=== PATIENT | female | born 1980 | race Caucasian/White ===

== ENCOUNTER 2019-12-01 04:07 | Emergency (ER) | payer MEDICARE, SELFPAY ==
[2019-12-01] VITALS (15 sets, daily range): BP systolic 89–141; BP diastolic 35–65; PULSE 84–104; RESP 16; TEMP 37; O2SAT 94–99; BMI 52.1
--- NOTE | 2019-12-01 04:37 | CTR_ITS ---
PROCEDURE INFORMATION: Exam: CT Abdomen And Pelvis With Contrast Exam date and time: 12/01/2019 4:41 AM Age: 39 years old Clinical indication: Other: Diarrhea; Prior surgery; Surgery date: 6+ months; Surgery type: Hyst; Additional info: Pain, diarrhea TECHNIQUE: Imaging protocol: Computed tomography of the abdomen and pelvis with intravenous contrast. Radiation optimization: All CT scans at this facility use at least one of these dose optimization techniques: automated exposure control; mA and/or kV adjustment per patient size (includes targeted exams where dose is matched to clinical indication); or iterative reconstruction. Contrast material: OMNI 300; Contrast volume: 95 ml; Contrast route: IV; COMPARISON: No relevant prior studies available. RADIATION DOSE METRICS: Total DLP: 2052.23 mGy-cm FINDINGS: Lungs: Mild atelectasis at bilateral lung bases. Liver: Diffuse fatty infiltration of the liver. Gallbladder and bile ducts: The gallbladder is unremarkable. Pancreas: The pancreas is unremarkable. Spleen: The spleen is unremarkable. Adrenals: There is a 2.6 cm x 1.6 cm nodule in the right adrenal gland on series 2, image 36 with density 36 Hounsfield units. The left adrenal gland is unremarkable. Kidneys and ureters: The kidneys are unremarkable. Stomach and bowel: A normal-appearing appendix is seen in the right lower quadrant. Appendix: No evidence of bowel obstruction. No evidence of diverticulitis. Intraperitoneal space: No free intraperitoneal air or fluid identified. Vasculature: The abdominal aorta is nonaneurysmal. Lymph nodes: Unremarkable. Bladder: The bladder is unremarkable. Reproductive: The uterus is not seen and is presumed surgically absent. Bones/joints: Minimal degenerative changes of the lower thoracic spine. Soft tissues: Unremarkable. CT/CT abdomen pelvis w con* [id number] IMPRESSION: 1. No acute intra-abdominal/intrapelvic process identified. 2. Indeterminate right adrenal nodule. Consider adrenal washout protocol CT on a nonemergent basis for further evaluation (Jeremie Swann, ACR White Paper, 2017) Radiation Dose CTDIVOL = (mGy): DLP = 2052.23 (mGy-cm)
[2019-12-01] MEDS: iohexol 300 mg/mL 100 mL Btl IV (04:45)
[2019-12-01] MEDS: sodium chloride 0.9% 1,000 ML 999 ML IV (05:24)
[2019-12-01 05:29] LABS: Basophils # 0.1 10^3/uL (0.0-0.1); Basophils % 0.3 %; Eosinophils # 0.2 10^3/uL (0.0-0.8); Eosinophils % 1.2 %; Hemoglobin 14.6 g/dL (11.5-15.3); Lymphocytes # 5.7 10^3/uL (0.8-4.8); Lymphocytes % 30.2 %; Mean Corpuscular HGB Conc 31.7 g/dL (30.0-36.0); Mean Corpuscular Hemoglobin 30.2 pg (28.0-34.0); Mean Corpuscular Volume 95.2 fL (81-99); Mean Platelet Volume 10.1 fL (7.4-10.4); Monocytes # 1.3 10^3/uL (0.2-0.9); Monocytes % 6.9 %; Neutrophils # 11.3 10^3/uL (1.8-7.7); Neutrophils % 60.5 %; Nucleated Red Blood Cells % 0 %; Platelet Count 250 10^3/cmm (130-400); Red Blood Count 4.83 10^6/uL (4.1-5.3); Red Cell Distribution Width 13.7 % (12.1-15.1); White Blood Count 18.7 10^3/uL (4.0-10.0)
[2019-12-01 05:55] LABS: Alanine Aminotransferase 47 U/L (0-33); Albumin Level 3.9 g/dL (3.5-5.2); Alkaline Phosphatase 38 IU/L (35-105); Anion Gap 15.8 (5-19); Aspartate Amino Transferase 25 U/L (0-32); Blood Urea Nitrogen 11 mg/dL (6-20); Calcium 9.1 mg/dL (8.5-10.5); Carbon Dioxide 22 mmol/L (22-29); Chloride 100 mmol/L (98-107); Globulin 2.6 g/dL (1.3-4.6); Glomerular Filtration Rate 112.5 mL/min (90-130); Glucose 103 mg/dL (65-115); Lipase 29 U/L (13-60); Osmolality Calculated 274 mOsm/kg (285-295); Potassium 3.8 mmol/L (3.5-5.1); Sodium 134 mmol/L (136-145); Total Bilirubin 0.3 mg/dL (0.15-1.2); Total Protein 6.5 g/dL (6.6-8.7)
[2019-12-01 06:12] LABS: C Reactive Protein 4.6 mg/L (0.0-4.9)
--- NOTE | 2019-12-01 06:17 | W.ED.NAVMDI ---
HPI - Nausea/Vomiting/Diarrhea General: Chief complaint: Nausea/Vomiting/Diarrhea Stated complaint: DIARRHEA; JELLY LIKE TEXTURE Time Seen by Provider: 12/01/19 04:25 History of Present Illness: MD elicited complaint: diarrhea and abdominal pain Pertinent past history: abdominal surgery Onset (ago): day(s) (1) Description of diarrhea: mucus and watery Associated nausea: Yes Associated abdominal pain: Yes Location of pain: Diffuse Radiation: diffuse Pain consistency: intermittent Quality: cramping and aching Exacerbating factors: movement Relieving factors: none Associated symtoms: Reports nausea; Denies anxiety, change in vision, chest pain, dizziness, dysuria, headache(s) or palpitations Review of Systems Const: Denies: fever(s) or chills Eyes: Denies: change in vision or blurry vision ENMT: Denies: swelling of lips/tongue, post nasal drip or sinus pain Card: Denies: chest pain, palpitations, irregular heart rhythm or edema Resp: Denies: dyspnea, productive cough, non-productive cough or wheezing GI: Reports: nausea : Denies: dysuria or hematuria Musc: Denies: neck pain, back pain, joint redness or joint warmth Skin/Breast: Denies: rash, pruritus or erythema Neuro: Denies: headache(s), dizziness or vertigo Psych: Denies: anxiety PFSH ED PFSH: Social History Smoking and tobacco status: current every day smoker Physical Exam Const: GENERAL APPEARANCE: well developed ORIENTATION/CONSCIOUSNESS: Yes oriented to person, Yes oriented to place and Yes oriented to time HENMT: COMMON NORMALS: normocephalic, external ears normal and Normal external nose present HEAD & SCALP: normocephalic FACE & SINUS: normal facial exam NOSE: Normal external nose present and No nasal discharge present EXTERNAL EAR: Yes external ears normal MOUTH: tongue normal THROAT: posterior oropharynx normal; no peritonsillar mass Eye: COMMON NORMALS: Equal, round and reactive pupils present, EOMs intact bilaterally and conjunctivae normal EYELID: eyelids normal CONJUNCTIVA: Yes conjunctivae normal PUPIL: Yes Equal, round and reactive pupils present Neck/C-Spine: GENERAL: No tracheal deviation Chest: COMMONS NORMALS: normal inspection of the chest CHEST: No tenderness Resp: COMMON NORMALS: clear to auscultation bilaterally EFFORT & INSPECTION: No tachypneic, No respiratory distress, No retractions, No uses accessory muscles and No tracheal deviation AUSCULTATION: clear to auscultation bilaterally, no rhonchi, no wheezes and lung sounds not diminished Cardio: COMMON NORMALS: regular rate and regular rhythm RATE: regular rate RHYTHM: regular rhythm HEART SOUNDS: no murmurs PERIPHERAL PULSES: radial pulses present GI: INSPECTION: No abdominal distension AUSCULTATION: No Hyperactive bowel sounds present and No Hypoactive bowel sounds present PALPATION: Yes Tenderness to palpation present (GI) (diffuse), No Guarding due to palpation present (GI) and No Rigid due to palpation PERCUSSION: no dullness to percussion and no tympanic to percussion : COMMON NORMALS: Yes no CVA tenderness BLADDER/KIDNEY EXAM: Yes no CVA tenderness Back/Pelvis: COMMON NORMALS: no CVA tenderness Neuro: SENSORIUM/ORIENTATION: Yes oriented to person, Yes oriented to place and Yes oriented to time Psych: COMMON NORMALS: mental status grossly normal Skin: COMMON NORMALS: no rashes or lesions noted GENERAL SKIN EXAM: no rashes or lesions noted Course Vital Signs: Vital signs: Vital Signs Temperature 98.6 F 12/01/19 04:20 Pulse Rate 84 12/01/19 06:30 Respiratory Rate 16 12/01/19 04:20 Blood Pressure 117/60 12/01/19 06:30 Pulse Oximetry 96 12/01/19 06:30 MDM - Nausea/Vomiting/Diarrhea MDM Narrative: Medical decision making narrative: 39-year-old female with a complaint of diarrhea. She has significant number of loose stools over the past 24 hours. Her hemoglobin is 14.6. Her white blood cell count is 19, but with a normal shift. Her electrolytes are essentially normal. She is received a liter of fluid. Her CT scan is negative. She will be treated for colitis Lab Data: Labs: Lab Results 12/01/19 12/01/19 Range/Units 04:56 05:23 WBC 18.7 H (4.0-10.0) 10^3/ uL RBC 4.83 (4.1-5.3) 10^6/u L Hgb 14.6 (11.5-15.3) g/dL Hct 46.0 (37.0-47.0) % MCV 95.2 (81-99) fL MCH 30.2 (28.0-34.0) pg MCHC 31.7 (30.0-36.0) g/dL RDW 13.7 (12.1-15.1) % Plt Count 250 (130-400) 10^3/c mm MPV 10.1 (7.4-10.4) fL Neut % (Auto) 60.5 % Lymph % (Auto) 30.2 % [place] % (Auto) 6.9 % Eos % (Auto) 1.2 % Baso % (Auto) 0.3 % Neut # (Auto) 11.3 H (1.8-7.7) 10^3/u L Lymph # (Auto) 5.7 H (0.8-4.8) 10^3/u L [place] # (Auto) 1.3 H (0.2-0.9) 10^3/u L Eos # (Auto) 0.2 (0.0-0.8) 10^3/u L Baso # (Auto) 0.1 (0.0-0.1) 10^3/u L Nucleated RBC % (a uto) 0 % Nucleated RBCs # 0.0 /100WBC Sodium 134 L (136-145) mmol/L Potassium 3.8 (3.5-5.1) mmol/L Chloride 100 (98-107) mmol/L Carbon Dioxide 22 (22-29) mmol/L Anion Gap 15.8 (5-19) BUN 11 (6-20) mg/dL Creatinine 0.6 (0.5-0.9) mg/dL GFR Calculation 112.5 (90-130) mL/min Glucose 103 (65-115) mg/dL Calculated Osmolal ity 274 L (285-295) mOsm/k g Calcium 9.1 (8.5-10.5) mg/dL Total Bilirubin 0.3 (0.15-1.2) mg/dL AST 25 (0-32) U/L ALT 47 H (0-33) U/L Alkaline Phosphata se 38 (35-105) IU/L C-Reactive Protein 4.6 (0.0-4.9) mg/L Total Protein 6.5 L (6.6-8.7) g/dL Albumin 3.9 (3.5-5.2) g/dL Globulin 2.6 (1.3-4.6) g/dL Lipase 29 (13-60) U/L Discharge Plan Discharge Patient Disposition: Home, Self-Care Clinical Impression: Colitis Diarrhea Qualifiers: Diarrhea type: presumed infectious Qualified Code(s): R19.7 - Diarrhea, unspecified Condition: Stable Prescriptions: New Flagyl 500 mg tablet 500 mg PO Q8H 7 Days Qty: 21 RF: 0 Discharge Orders: Discharge Order (Routine); Ordered 12/01/19 Ordered By: Bro Gant Discharge Diet: Usual diet Discharge Activity: Increase activity as tolerated Patient Instructions: Acute Diarrhea (ED), Infectious Colitis (ED) Activity Restrictions/Additional Instructions: Return for fever greater than 100 despite 2-3 doses of antibiotics, worsening diarrhea despite treatment, and liquids or medications, worsening pain, other concerning symptoms Discharge Date/Time: 12/01/19 06:47 Coding Level of Care Code ED Accounts Receivable Collector for Jonathon Fwd Exam Comprehensive
[2019-12-01] MEDS: metroNIDAZOLE 500 MG Tablet PO (06:38)
[2019-12-01] MEDS: dexamethasone 4 mg/mL INJ 8 MG IVP (06:39)
== END 2019-12-01 06:47 | disposition home or self-care (01) ==
PROVIDERS: Emergency Provider Emergency Medicine
DX: K52.9 Noninfective gastroenteritis and colitis, unspecified (principal); F17.210 Nicotine dependence, cigarettes, uncomplicated; R19.7 Diarrhea, unspecified
CPT/HCPCS: 12345; 74177; 80053; 82274; 83630; 83690; 85025; 86140; 87493; 87506; 96361; 96374; 99283; J1100; J7030; Q9967

== ENCOUNTER 2021-05-06 18:30 | Emergency (ER) | payer MEDICARE, MEDICAID, SELFPAY ==
[2021-05-06 19:14] VITALS: BP 145/89; PULSE 95; RESP 18; TEMP 36.7; O2SAT 97; BMI 57.8
[2021-05-06 22:30] VITALS: BP 149/90; PULSE 91; O2SAT 97
--- NOTE | 2021-05-06 23:04 | W.ED.SKABFB ---
HPI - Skin/Abscess/Foreign Bdy General: Chief complaint: Skin/Abscess/Foreign Body Stated complaint: PAINFUL GROWTH ON VAGINA Time Seen by Provider: 05/06/21 22:28 History of Present Illness: HPI narrative: Patient is a 40-year-old female comes to the ED with painful swelling of vagina. Patient says symptoms started approximately 2 days ago. Swelling has only increased and gotten more painful. She says its located on right inside part of her vagina. Any pressure or touch causes severe pain. She rates the pain currently an 8 out of 10. Denies any fever, chills, nausea/vomiting, vaginal bleeding or discharge. Associated symptoms: Deny chills, fever(s), nausea or vomiting Review of Systems Const: Denies: fever(s), chills or fatigue Eyes: Denies: change in vision or eye discomfort ENMT: Denies: throat pain, odynophagia, nasal discharge or nasal congestion Card: Denies: chest pain, palpitations, edema, swelling of feet/ankles, dyspnea on exertion or orthopnea Resp: Denies: dyspnea, productive cough or non-productive cough GI: Denies: abdominal pain, nausea, vomiting, diarrhea, constipation or hematochezia : Reports: genital lesions (Right side painful, swollen mass.); Denies: flank pain, dysuria or hematuria Musc: Denies: neck pain, back pain or extremity swelling Skin/Breast: Denies: rash or new lesions Neuro: Denies: headache(s), numbness in extremities or weakness in extremities PFS ED PFSH: Social History Smoking and tobacco status: current every day smoker Physical Exam Const: COMMON NORMALS: no acute distress, patient oriented x3 and alert GENERAL APPEARANCE: cooperative NUTRITIONAL APPEARANCE: obese HENMT: COMMON NORMALS: normocephalic HEAD & SCALP: normocephalic MOUTH: Normal oral and palatal mucosa present THROAT: posterior oropharynx normal and uvula midline Neck/C-Spine: COMMON NORMALS: supple GENERAL: Yes normal visual inspection Resp: COMMON NORMALS: normal respiratory effort, No retractions, No use of accessory muscles and clear to auscultation bilaterally AUSCULTATION: clear to auscultation bilaterally Cardio: COMMON NORMALS: regular rate, regular rhythm, S1 normal heart sound present, S2 normal heart sound present, No gallops present (Cardio), No clicks present (Cardio), No murmurs present (Cardio) and Peripheral pulses 2+ throughout RATE: regular rate RHYTHM: regular rhythm HEART SOUNDS: S1 normal heart sound present and S2 normal heart sound present PERIPHERAL PULSES: Peripheral pulses 2+ throughout GI: COMMON NORMALS: Normal to inspection, nondistended, normoactive bowel sounds present, Soft to palpation, non-tender and no masses PALPATION: Yes Soft to palpation : COMMON NORMALS: Yes no CVA tenderness BLADDER/KIDNEY EXAM: Yes no CVA tenderness EXTERNAL FEMALE EXAM: Yes Bartholin cyst (1cm in size) Bartholin's cyst laterality: right and Yes externally tender (right side of vagina) Back/Pelvis: COMMON NORMALS: no CVA tenderness Neuro: COMMON NORMALS: patient oriented x3 and moves all extremities SENSORIUM/ORIENTATION: Yes alert Skin: GENERAL SKIN EXAM: dry skin Procedures Abscess I/D Site: bartholin's gland (right side) Side (if applicable): right (Iodine swab applied before injection of lidocaine.) Sedation/analgesia: other (dilaudid 1 mg) Local Anesthetic: lidocaine 1% Amount of anesthesia used (mL): 10 Technique: incised with #11 blade Amount of fluid expressed (mL): 6 (Purulent and bloody discharge.) Irrigation: Yes Packing used?: none Course Vital Signs: Vital signs: Vital Signs Temperature 98.1 F 05/06/21 19:14 Pulse Rate 78 05/07/21 01:37 Respiratory Rate 18 05/07/21 01:37 Blood Pressure 142/87 05/07/21 01:37 Pulse Oximetry 98 05/07/21 01:37 MDM - Skin/Abscess/Foreign Bdy MDM Narrative: Medical decision making narrative: Patient is a 40-year-old female comes to the ED with right-sided vaginal swelling and pain. Exam shows a Bartholin cyst on the right side. Patient was given IV Dilaudid to help with pain before abscess I&D performed. Lidocaine 1% used as local. Abscess I&D was performed and 6 mL of purulent bloody drainage expressed. Further details of I&D in procedure section of note. Abscess culture obtained and pending. Patient diagnosed with Ollie cyst and discharged home with a prescription for ciprofloxacin. 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 Return to ED precautions given. Patient understood and agreed with plan. Lab Data: Attestation: I reviewed the patient's lab results. Discharge Plan Discharge Patient Disposition: Home Clinical Impression: Bartholin cyst Condition: Stable Prescriptions: New ciprofloxacin HCl 500 mg tablet 500 mg PO BID 7 Days Qty: 14 RF: 0 Discharge Orders: Discharge ED (Routine); Ordered 05/07/21 Ordered By: Aung Lord Discharge Diet: Regular Discharge Activity: Increase activity as tolerated Patient Instructions: Bartholin Cyst (ED), Opioid Safety Activity Restrictions/Additional Instructions: Follow-up with medical provider as directed. Contact your java core developer doctor tomorrow to set up an appointment for reevaluation within the next 7 to 10 days. Take medications as prescribed. Return to the ER or your medical provider if condition worsens. Please read and understand discharge instructions. Thank you for choosing [facility] for your healthcare needs today. Please realize this is an emergency room and that we are providing you with a medical screening exam and this may not be complete and all inclusive of all the testing and or work up that you may need to determine your ailment or severity of your illness. It is very important that you follow up as instructed or that you return to the Emergency Department should you have concerns or if your condition changes or worsens in any way. Coding Level of Care Code ED Guidance Counselor for Jonathon Mccollum Exam Comprehensive
[2021-05-07 00:12] VITALS: BP 180/111; PULSE 88; RESP 20; O2SAT 96
[2021-05-07] MEDS: HYDROmorphone 1 mg/mL INJ 1 mL IVP (00:15)
[2021-05-07] MEDS: ondansetron 2 mg/ML SDV 2 mL 4 MG IVP (00:15)
[2021-05-07] MEDS: lidocaine 1% INJ 20 mL INJECTION (00:32)
[2021-05-07 01:18] VITALS: BP 145/88; PULSE 78; RESP 18; O2SAT 97
--- NOTE | 2021-05-07 01:18 | PC.NURSE ---
Assisted with drainage of bartholin cyst. Pt tolerated well.
[2021-05-07] MEDS: HYDROcodone-acetaminophen 7.5-325 mg Tablet 1 TAB PO (01:20)
[2021-05-07] MEDS: ciprofloxacin 500 mg Tablet PO (01:20)
[2021-05-07 01:37] VITALS: BP 142/87; PULSE 78; RESP 18; O2SAT 98
== END 2021-05-07 01:39 | disposition home or self-care (01) ==
PROVIDERS: Emergency Provider Physician Assistant
DX: N75.0 Cyst of Bartholin's gland (principal); F17.200 Nicotine dependence, unspecified, uncomplicated
CPT/HCPCS: 56420; 87070; 87075; 87205; 96374; 96375; 99284; J1170; J2405

== ENCOUNTER 2021-07-01 12:00 | Outpatient (CLI) | payer MEDICARE, SELFPAY | END 2021-07-01 12:01 | disposition home or self-care (01) | LOC: SLEEP 07-13 13:37 | PROVIDERS: Visit Provider Internal Medicine | DX: G47.33 Obstructive sleep apnea (adult) (pediatric) (principal) | CPT/HCPCS: G0399 ==

== ENCOUNTER 2022-05-05 06:00 | Outpatient (RCR) | payer MEDICARE, SELFPAY | END 2022-05-09 23:59 | disposition home or self-care (01) | LOC: TPT 06:00 | PROVIDERS: Visit Provider Nurse Practitioner Family | DX: Z98.890 Other specified postprocedural states (principal); M25.561 Pain in right knee | CPT/HCPCS: 97162 ==

== ENCOUNTER 2022-05-10 06:00 | Outpatient (RCR) | payer MEDICARE, SELFPAY | END 2022-06-08 23:59 | disposition home or self-care (01) | LOC: TPT 06:00 | PROVIDERS: Visit Provider Nurse Practitioner Family | DX: M25.561 Pain in right knee (principal); Z98.890 Other specified postprocedural states | CPT/HCPCS: 97110 ==

== ENCOUNTER → 2022-06-22 14:05 | Outpatient (BNVA) | payer MEDICARE, SELFPAY | PROVIDERS: Visit Provider Nurse Practitioner Family | DX: R05.8 Other specified cough (principal) | CPT/HCPCS: 71046 ==

== ENCOUNTER 2022-08-11 11:30 | Outpatient (CLI) | payer MEDICARE, SELFPAY ==
--- NOTE | 2022-08-11 11:41 | MM_ITS ---
WS: [id number] Bilateral screening 3D tomosynthesis digital mammogram, 08/11/2022 Clinical Data: SCREENING Comparison: None. Findings: The breast parenchymal pattern shows fibroglandular tissue. No spiculated masses or clustered calcifi cations are seen. There are no secondary signs of carcinoma. MM/[place] [id number] Impression: 1. Negative bilateral mammograms with no prior exam for review. 2. Recommend annual screening mammograms. BIRADS: 1-Negative FOLLOW UP: 1 Year Follow-up The CAD grade checker was used.
== END 2022-08-11 11:31 | disposition home or self-care (01) ==
LOC: RAD 11:37
PROVIDERS: PCP Nurse Practitioner Family; Visit Provider Nurse Practitioner Family
DX: Z12.31 Encounter for screening mammogram for malignant neoplasm of breast (principal)
CPT/HCPCS: 77063; 77067

== ENCOUNTER 2023-01-17 17:48 | Outpatient (CLI) | payer MEDICARE, MEDICAID, SELFPAY ==
--- NOTE | 2023-01-17 17:59 | XRR_ITS ---
PROCEDURE INFORMATION: Exam: XR Chest Exam date and time: 01/17/2023 6:00 PM Age: 42 years old Clinical indication: Patient HX: Patient was choking the other morning and spit up yellow liquid. Patient also has a cough since that initial encounter; Additional info: Aspiration into airway initial encounter.No history of trauma or recent surgery is provided. TECHNIQUE: Imaging protocol: Radiologic exam of the chest. 2image(s) are provided. Views: 2 views. COMPARISON: CR XR chest 2V* [id number] 06/22/2022 2:10 PM. Lung base report of 12/01/2019. FINDINGS: Lungs: No lobar consolidation is appreciated. Pleural spaces: No pneumothorax or pleural effusion is appreciated. Heart/Mediastinum: The cardiomediastinal silhouette is within normal. No cardiac decompensation is appreciated. Diaphragm: There is slight asymmetric right hemidiaphragm elevation. Bones/joints: Osseous alignment is maintained.No interval displaced fracture or dislocation is appreciated. Soft tissues: No radiopaque foreign body or subcutaneous emphysema is appreciated. Other findings: No significant interval changes are appreciated. XR/XR chest 2V* [id number] IMPRESSION: No lobar consolidation or cardiac decompensation is appreciated.No interval acute cardiopulmonary changes are appreciated.
== END 2023-01-17 17:49 | disposition home or self-care (01) ==
PROVIDERS: PCP Nurse Practitioner Family; Visit Provider Nurse Practitioner Family
DX: T17.908A Unspecified foreign body in respiratory tract, part unspecified causing other injury, initial encounter (principal); R05.9 Cough, unspecified; X58.XXXA Exposure to other specified factors, initial encounter
CPT/HCPCS: 71046

== ENCOUNTER 2023-02-08 09:51 | Emergency (ER) | payer MEDICARE, MEDICAID, SELFPAY ==
[2023-02-08 09:58] VITALS: BP 117/75; PULSE 82; RESP 15; TEMP 36.9; O2SAT 99
--- NOTE | 2023-02-08 10:08 | W.ED.EXTPRO ---
HPI - Extremity Problem General: Chief complaint: Extremity Problem,Nontraumatic Stated complaint: left arm pain Time Seen by Provider: 02/08/23 09:53 Source: patient Mode of arrival: ambulatory Limitations: no limitations History of Present Illness: Patient is a 42-year-old female with past medical history of anxiety, depression, and bipolar disorder who presents to the emergency room complaining of left arm weakness/wrist drop onset this morning. Patient says she awoke today with feeling that her left arm is flaccid and numb. She also complains that her left wrist stays primarily in flexion and that she does not have the strength to extend it. She is not having pain. Patient says she called her PCP, who said to present to the emergency room to rule out possible stroke symptoms. is present in the room and denies any recent slurring of speech, facial asymmetry, or any other concerning signs and symptoms. Patient denies any recent illness, injury/trauma to the arm, fever, chest pain, headache, or any other symptoms. Patient says that she does not think she slept on her shoulder wrong because she normally sleeps on her back. Complaint: other (Left arm weakness) Onset (ago): hour(s) Location: left Radiation: none Relieving factors: nothing Exacerbating factors: nothing Associated symptoms: Reports no associated symptoms; Deny chest pain, fever(s) or rash Review of Systems General: Reports: 10 or more systems reviewed and unremarkable except in HPI and below Const: Denies: fever(s), chills, body aches, fatigue or malaise Eyes: Denies: change in vision or blurry vision Card: Denies: chest pain, palpitations, irregular heart rhythm, lightheadedness, syncope or dyspnea on exertion Resp: Denies: dyspnea, productive cough or pain on inspiration GI: Denies: abdominal pain, nausea, vomiting, heartburn or diarrhea : Denies: dysuria Musc: Reports: limited range of motion (wrist) and muscle weakness; Denies: neck pain, back pain, extremity pain, extremity swelling, joint pain, joint swelling, joint redness, joint warmth, joint stiffness, muscle cramps, decrease in muscle mass or loss of height Skin/Breast: Denies: rash Neuro: Reports: numbness in extremities (Left arm), weakness in extremities (Left wrist) and sensory changes (Left arm); Denies: headache(s), dizziness, confusion, behavioral changes, Slurred speech present or difficulty communicating thoughts Psych: Reports: anxiety and panic attacks (Yesterday); Denies: depression or mood swings PFSH ED PFSH: Social History Smoking and tobacco status: current every day smoker Physical Exam Const: COMMON NORMALS: no acute distress, patient oriented x3, no limitations, alert and well nourished EXAM LIMITATIONS: no altered mental status GENERAL APPEARANCE: cooperative and anxious ORIENTATION/CONSCIOUSNESS: Yes awake, Yes oriented to person, Yes oriented to place and Yes oriented to time HENMT: COMMON NORMALS: normocephalic and atraumatic HEAD & SCALP: normocephalic and atraumatic Eye: COMMON NORMALS: Equal, round and reactive pupils present, EOMs intact bilaterally and conjunctivae normal GENERAL EYE: appearance normal, both eyes and all related structures CONJUNCTIVA: Yes conjunctivae normal PUPIL: Yes Equal, round and reactive pupils present Neck/C-Spine: COMMON NORMALS: full ROM, no lymphadenopathy, supple and no meningeal signs Chest: COMMONS NORMALS: normal inspection of the chest Resp: COMMON NORMALS: normal respiratory effort and clear to auscultation bilaterally AUSCULTATION: clear to auscultation bilaterally Cardio: COMMON NORMALS: regular rate and regular rhythm RATE: regular rate RHYTHM: regular rhythm GI: COMMON NORMALS: Normal to inspection, nondistended, normoactive bowel sounds present, Soft to palpation, non-tender, No hepatosplenomegaly present and no masses PALPATION: Yes Soft to palpation, No Tenderness to palpation present (GI) and Yes No hepatosplenomegaly present : COMMON NORMALS: Yes no CVA tenderness BLADDER/KIDNEY EXAM: Yes no CVA tenderness Back/Pelvis: COMMON NORMALS: no CVA tenderness and thoracic and lumbar spine normal to inspection Extremity: COMMON NORMALS: normal to inspection, full ROM, capillary refill normal, no joint enlargement and no clubbing, cyanosis or edema NARRATIVE EXTREMITY EXAM: Shipper/Receiver strength 3/5 on the left. Obvious left wrist drop noted. Weakness with wrist extension/flexion. Left arm is nontender to palpation without signs of rash, swelling, or bruising. There are no signs of trauma. Skin normal temp bilaterally. Good equal pulses bilaterally. Reporting paresthesias throughout extremity in no specific pattern of distribution. GENERAL: Yes normal exam except as noted LEFT UPPER EXTREMITY: Yes wrist Neuro: COMMON NORMALS: patient oriented x3 SENSORIUM/ORIENTATION: Yes alert, Yes oriented to person, Yes oriented to place and Yes oriented to time MENINGEAL SIGNS: Yes no meningeal signs SPEECH: speech normal SENSORY EXAM: Yes extremities (L UE) MOTOR EXAM: Abnormal motor strength present (left wrist flexion/extension) DEEP TENDON REFLEXES: Left triceps reflex intensity grade: 2+, Left biceps reflex intensity grade: 2+ and Left brachioradialis reflex intensity grade: 2+ Skin: COMMON NORMALS: no rashes or lesions noted GENERAL SKIN EXAM: no rashes or lesions noted Course Vital Signs: Vital signs: Vital Signs Temperature 98.5 F 02/08/23 09:58 Pulse Rate 81 02/08/23 11:12 Respiratory Rate 15 02/08/23 09:58 Blood Pressure 135/83 02/08/23 11:12 Pulse Oximetry 100 02/08/23 11:12 Oxygen Delivery Me thod Room Air 02/08/23 11:12 MDM - Extremity (Nontraumatic) Medical Decision Making Patient is not having any neck pain. She denies injury or trauma. She states paresthesias is affecting her entire left upper extremity. Her left upper arm reflexes are intact. She has an obvious left wrist drop. Strength appears intact to upper arm/triceps but seems weak to forearm and especially with wrist extension/flexion. Symptoms do not seem consistent with a cervical root lesion. Discussed case with Dr. Buckley who recommends CTA head/neck to assess for possible CVA. This ultimately was negative. She was incidentally found to have marked thyromegaly. Case management referral to endocrinology was placed. We will also have her follow-up with neurology for further evaluation of her left wrist drop/radial nerve palsy. Lab Data 02/08/23 10:35 02/08/23 10:[address] 02/08/23 10:26 IMPRESSION: Negative head CT. Head/Neck CTA 02/08/23 10:26 IMPRESSION: 1. Normal carotid arteries. 2. Unremarkable [place]. 3. Marked thyromegaly. Thyroid extends substernal. Recommend endocrinology evaluation. Laboratory Results WBC 13.5 10^3/uL (4.0-10.0) H 02/08/23 10:35 RBC 5.05 10^6/uL (4.1-5.3) 02/08/23 10:35 Hgb 16.3 g/dL (11.5-15.3) H 02/08/23 10:35 Hct 50.2 % (37.0-47.0) H 02/08/23 10:35 MCV 99.4 fl (81-99) H 02/08/23 10:35 MCH 32.3 pg (28.0-34.0) 02/08/23 10:35 MCHC 32.5 g/dL (30.0-36.0) 02/08/23 10:35 RDW 13.1 % (12.1-15.1) 02/08/23 10:35 Plt Count 247 10^3/cmm (130-400) 02/08/23 10:35 MPV 9.7 fL (7.4-10.4) 02/08/23 10:35 Neut % (Auto) 59.9 % 02/08/23 10:35 Lymph % (Auto) 31.5 % 02/08/23 10:35 [place] % (Auto) 5.9 % 02/08/23 10:35 Eos % (Auto) 1.9 % 02/08/23 10:35 Baso % (Auto) 0.4 % 02/08/23 10:35 Neut # (Auto) 8.09 10^3/uL (1.8-7.7) H 02/08/23 10:35 Lymph # (Auto) 4.3 10^3/uL (0.8-4.8) 02/08/23 10:35 [place] # (Auto) 0.8 10^3/uL (0.2-0.9) 02/08/23 10:35 Eos # (Auto) 0.3 10^3/uL (0.0-0.8) 02/08/23 10:35 Baso # (Auto) 0.1 10^3/uL (0.0-0.1) 02/08/23 10:35 Nucleated RBC % (auto) 0 % 02/08/23 10:35 Nucleated RBCs # 0.0 /100WBC 02/08/23 10:35 PT 13.70 SECONDS (12.1-14.9) 02/08/23 10:35 INR 1.01 (0.8-1.2) 02/08/23 10:35 APTT 25.2 SECONDS (23.9-36.7) 02/08/23 10:35 Sodium 135 mmol/L (136-145) L 02/08/23 10:35 Potassium 4.0 mmol/L (3.5-5.1) 02/08/23 10:35 Chloride 103 mmol/L (98-107) 02/08/23 10:35 Carbon Dioxide 23 mmol/L (22-29) 02/08/23 10:35 Anion Gap 13.0 (5-19) 02/08/23 10:35 BUN 13 mg/dL (6-20) 02/08/23 10:35 Creatinine 0.6 mg/dL (0.5-0.9) 02/08/23 10:35 GFR Calculation 110.7 mL/min (90-130) 02/08/23 10:35 Glucose 116 mg/dL (65-115) H 02/08/23 10:35 Calculated Osmolality 281 mOsm/kg (285-295) L 02/08/23 10:35 Calcium 9.8 mg/dL (8.5-10.5) 02/08/23 10:35 Total Bilirubin 0.3 mg/dL (0.15-1.2) 02/08/23 10:35 AST 25 U/L (0-32) 02/08/23 10:35 ALT 36 U/L (0-33) H 02/08/23 10:35 Alkaline Phosphatase 66 U/L (35-105) 02/08/23 10:35 Total Protein 8.1 g/dL (6.6-8.7) 02/08/23 10:35 Albumin 4.7 g/dL (3.5-5.2) 02/08/23 10:35 Globulin 3.4 g/dL (1.3-4.6) 02/08/23 10:35 [place] 1.1 mmol/L (0.6-1.2) 02/08/23 10:35 Discharge Plan Discharge Patient Disposition: Home Clinical Impression: Left wrist drop, Thyromegaly Condition: Stable Prescriptions: No Action vitamin E 670 mg (1,000 unit) Capsule 670 mg PO DAILY doxepin 50 mg capsule 50 mg PO BEDTIME vitamin A 2,400 mcg Capsule 2,400 mcg PO DAILY oxybutynin chloride 15 mg tablet extended release 24hr 15 mg PO QAM clindamycin HCl 300 mg capsule 300 mg PO TID PRN (Reason: unknown) minocycline 100 mg Capsule 100 mg PO DAILY PRN (Reason: unknown) clonazepam 1 mg tablet 1 mg PO BEDTIME omeprazole 40 mg capsule,delayed release(DR/EC) 40 mg PO QAM prazosin 5 mg capsule 10 mg PO BEDTIME bupropion HCl 100 mg tablet 400 mg PO QAM methocarbamol 750 mg tablet 1,500 mg PO BEDTIME gabapentin 800 mg tablet 1,600 mg PO BEDTIME lithium carbonate 600 mg capsule 600 mg PO BID Stool Softener 100 mg Capsule 400 mg PO QAM ziprasidone HCl 60 mg capsule 120 mg PO BEDTIME Laxative (bisacodyl) 5 mg Tablet 20 mg PO QAM Vitamin D3 25 mcg (1,000 unit) Capsule 25 mcg PO DAILY melatonin 10 mg Tablet 10 mg PO BEDTIME vitamin K2 40 mcg Tablet 40 mcg PO DAILY Humira(CF) Pen 40 mg/0.4 mL pen injector kit 40 mg SUBCUT Q7D Rx Instructions: on mon Discharge Orders: Discharge ED (Routine); Ordered 02/08/23 Ordered By: Elizabeth Calzada Referrals: Clair Rosario APN [Primary Care Provider] - Patient Instructions: Radial Nerve Palsy (ED) Activity Restrictions/Additional Instructions: As we discussed your CT scans today were negative. They did incidentally comment on an enlarged thyroid. I have referred you to endocrinology. Case management should be contacting you shortly to set you up with this appointment. We will also refer you to neurology for further evaluation of your left wrist drop in case this does not improve. Coding Level of Care Code ED Undercollar Maker for Jonathon Mccollum
--- NOTE | 2023-02-08 10:26 | CT_ITS ---
WS: [id number] CT ANGIOGRAM CEREBRAL AND CAROTID ARTERIES HISTORY: L arm numbness/weakness, wrist drop TECHNIQUE: CT angiogram is performed of the carotid and cerebral arteries. During arterial injection imaging is obtained from the skull vertex to the aortic arch in 1.25 mm imaging. Coronal and sagittal reformats are submitted. Additional multi planar reformats of the carotid and cerebral arteries are submitted, MIP imaging also reviewed. NASCET criteria utilized. All CT scans at [employer] us e at least one of these dose optimization techniques: automated exposure control; mA and/or kV adjust ment per patient size (includes targeted exams where dose is matched to clinical indication); or iter ative reconstruction. CONTRAST: Omnipaque 350; 100 mL IV. DLP: 480.17 mGy.cm COMPARISON: None available. Carotid Angiogram: Right carotid: Common carotid artery: Arises normally from the innominate artery. No significant plaque or stenosis. Internal carotid artery: No plaque or stenosis. External carotid artery: Patent. Left carotid: Common carotid artery: Arises normally from the aorta. No significant plaque or stenosis. Internal carotid artery: No plaque or stenosis. External carotid artery: Patent. Right vertebral artery: Unremarkable. Left vertebral artery: Unremarkable. Arises normally from the subclavian artery. Subclavian arteries: No stenosis or significant abnormality. Upper thorax: Normal. Thyroid gland: Markedly enlarged including the isthmus. RIGHT lobe is larger than the LEFT. Thyroid e xtends substernal. Osseous structures: Unremarkable. CEREBRAL ANGIOGRAM: Intracranial vertebral arteries: Normal with no significant atherosclerosis. Basilar artery: No significant stenosis or occlusion. No aneurysm. Intracranial Internal carotid arteries: Demonstrates no significant stenosis or plaque. Middle cerebral arteries: Normal. Anterior cerebral arteries and ACOM: Normal. Posterior cerebral arteries and PCOM's: Normal. Dural venous sinuses are normally enhancing. Mastoid air cells: Normal. Paranasal sinuses: Large mucous retention cyst in the RIGHT maxillary sinus. Calvarium: Normal. CT/CT angio headneck* [id number] IMPRESSION: 1. Normal carotid arteries. 2. Unremarkable [place]. 3. Marked thyromegaly. Thyroid extends substernal. Recommend endocrinology sunita luation.
--- NOTE | 2023-02-08 10:26 | CT_ITS ---
WS: [id number] CT HEAD NONCONTRAST HISTORY: L arm numbness/weakness, wrist drop TECHNIQUE: Contiguous axial imaging performed through the brain in 3.0 mm imaging. Bone and soft tiss ue windows. Sagittal and coronal reformats reviewed. All CT scans at [facility] use at least one of these dose optimization techniques: automated exposure control; mA and/or kV adjustment per pa tient size (includes targeted exams where dose is matched to clinical indication); or iterative recon struction. DLP: 971.60 mGy-cm. COMPARISON: None available. No acute intracranial hemorrhage, midline shift or mass effect. No atrophy or prior infarcts or herniation. Ventricles: Normal size with no hydrocephalus. Paranasal sinuses: As visualized are clear. Mastoid air cells: Well pneumatized. Calvarium and scalp: Skull is intact with no soft tissue edema or swelling. CT/CT head thrombolytic 72795 IMPRESSION: Negative head CT.
[2023-02-08 10:46] LABS: Basophils # 0.1 10^3/uL (0.0-0.1); Basophils % 0.4 %; Eosinophils # 0.3 10^3/uL (0.0-0.8); Eosinophils % 1.9 %; Hematocrit 50.2 % (37.0-47.0); Hemoglobin 16.3 g/dL (11.5-15.3); Lymphocytes # 4.3 10^3/uL (0.8-4.8); Lymphocytes % 31.5 %; Mean Corpuscular HGB Conc 32.5 g/dL (30.0-36.0); Mean Corpuscular Hemoglobin 32.3 pg (28.0-34.0); Mean Corpuscular Volume 99.4 fl (81-99); Mean Platelet Volume 9.7 fL (7.4-10.4); Monocytes # 0.8 10^3/uL (0.2-0.9); Monocytes % 5.9 %; Neutrophils # 8.09 10^3/uL (1.8-7.7); Neutrophils % 59.9 %; Nucleated Red Blood Cells % 0 %; Platelet Count 247 10^3/cmm (130-400); Red Blood Count 5.05 10^6/uL (4.1-5.3); Red Cell Distribution Width 13.1 % (12.1-15.1); White Blood Count 13.5 10^3/uL (4.0-10.0)
[2023-02-08 11:00] LABS: INR 1.01 (0.8-1.2)
[2023-02-08 11:01] LABS: Partial Thromboplastin Time 25.2 SECONDS (23.9-36.7)
[2023-02-08 11:03] LABS: Alanine Aminotransferase 36 U/L (0-33); Albumin Level 4.7 g/dL (3.5-5.2); Alkaline Phosphatase 66 U/L (35-105); Aspartate Amino Transferase 25 U/L (0-32); Blood Urea Nitrogen 13 mg/dL (6-20); Calcium 9.8 mg/dL (8.5-10.5); Carbon Dioxide 23 mmol/L (22-29); Chloride 103 mmol/L (98-107); Globulin 3.4 g/dL (1.3-4.6); Glomerular Filtration Rate 110.7 mL/min (90-130); Glucose 116 mg/dL (65-115); Osmolality Calculated 281 mOsm/kg (285-295); Sodium 135 mmol/L (136-145); Total Bilirubin 0.3 mg/dL (0.15-1.2); Total Protein 8.1 g/dL (6.6-8.7)
[2023-02-08] MEDS: iohexol 350 mg/mL 500 mL Btl (per mL) IV (11:04)
[2023-02-08 11:12] VITALS: BP 135/83; PULSE 81; O2SAT 100
[2023-02-08 12:09] LABS: Lithium 1.1 mmol/L (0.6-1.2)
--- NOTE | 2023-02-08 12:56 | DCPLANNER ---
Addendum entered by Izabela Jackson 02/22/23 13:40: Patient has a follow up appointment scheduled for Monday, May 08, [address] Arriaga at neurology. Addendum entered by Izabela Jackson 02/14/23 09:44: Patient has a follow up appointment scheduled for Tuesday, April 11, 2023 at 8:[address] Isidro at endocrinology. Original Note: auto fleet maintenance manager had message to schedule a followup appointment for patient with endocrinology and neurology. auto fleet maintenance manager sent patients information to the front office staff at neurology. Patients information will be printed and reviewed. Clinic will call patient with appointment information. auto fleet maintenance manager had message to schedule a follow up appointment for patient with endocrinology. auto fleet maintenance manager sent patients information to the front end web designer staff at endocrinology. Patients information will be printed and reviewed. Clinic will call patient with appointment information.
== END 2023-02-08 12:05 | disposition home or self-care (01) ==
PROVIDERS: Emergency Provider Physician Assistant; PCP Nurse Practitioner Family
DX: M21.332 Wrist drop, left wrist (principal); E01.0 Iodine-deficiency related diffuse (endemic) goiter; F17.200 Nicotine dependence, unspecified, uncomplicated; Z79.899 Other long term (current) drug therapy
CPT/HCPCS: 70450; 70496; 70498; 80053; 80178; 85025; 85610; 85730; 99285; Q9967